=== PATIENT | male | born 1940 | race Caucasian/White ===

== ENCOUNTER 2024-09-11 07:07 | Observation (INO) ==
[2024-09-07 10:32] LABS: Appearance,Urine Clear (Clear); Bilirubin,Urine Negative (Negative); Color,Urine Yellow; Glucose,Urine (UA) Negative (Negative); Ketones,Urine Negative (Negative); Leukocyte Esterase,Urine Trace /uL (Negative); Nitrate,Urine Negative (Negative); PH,Urine 5.5 (5.0-9.0); Protein,Urine Negative (Negative); Urine Blood Negative ery/mcL (Negative); Urine Hyaline Cast 6 /lph (0-2); Urine RBC 0 /hpf (0-3); Urine Squamous Epithelial Cell 2 /hpf (0-4); Urine WBC 2 /hpf (0-4); Urobilinogen,Urine Normal
[2024-09-08 12:28] LABS: Basophils # (Auto) 0.05 K/mcL (0.00-0.30); Basophils % (Auto) 0.6 % (0.0-2.0); Eosinophils # (Auto) 0.15 K/mcL (0.00-0.70); Eosinophils % (Auto) 1.7 % (0.0-7.0); Hematocrit 45.4 % (40.1-51.0); Hemoglobin 14.4 g/dL (13.7-17.5); Lymphocytes # (Auto) 1.23 K/mcL (1.50-4.80); Lymphocytes % (Auto) 13.7 % (15.5-49.0); Mean Cell Volume 92.7 fL (80.0-100.0); Mean Corpuscular HGB Conc 31.7 g/dL (31.0-36.0); Monocytes # (Auto) 0.86 K/mcL (0.10-0.90); Monocytes % (Auto) 9.6 % (1.0-12.0); Neutrophils % (Auto) 74.2 % (38.0-78.0); Platelet Count 163 K/mcL (140-440)
[2024-09-08 12:37] LABS: Prothrombin Time 13.8 sec (11.9-14.5)
[2024-09-08 12:58] LABS: ALT/SGPT 12 U/L (<40); AST/SGOT 27 U/L (<40); Albumin 3.9 gm/dL (3.2-5.2); Albumin/Globulin Ratio 1.2 (1.0-2.3); Alkaline Phosphatase 123 U/L (39-117); Bilirubin,Total 0.6 mg/dL (0.1-1.0); Blood Urea Nitrogen 22 mg/dL (8-23); Calcium 9.2 mg/dL (8.6-10.4); Carbon Dioxide 25 mmol/L (22-30); Chloride 102 mmol/L (96-108); Globulin 3.3 gm/dL (2.2-3.7); Glomerular Filtration Rate 62; Glucose 161 mg/dL (70-105); Potassium 4.6 mmol/L (3.3-5.1); Sodium 140 mmol/L (133-145)
[2024-09-08 15:41] LABS: Estimated Average Glucose(eAG) 137 mg/dL; Hemoglobin A1C 6.4 % Hgb (4.0-6.0)
[2024-09-11] MEDS ORDERED: SUGAMMADEX SODIUM 200 MG/2 ML VIAL IV ONE (07:47)
[2024-09-11] MEDS ORDERED: fentaNYL 100 MCG/2 ML VIAL ONE (07:47)
[2024-09-11] MEDS ORDERED: PROPOFOL 200 MG/20 ML VIAL IV ONE (07:48)
[2024-09-11] MEDS ORDERED: ROCURONIUM 10 MG/ML ML IV ONE ×2 (07:48→09:40)
[2024-09-11] MEDS ORDERED: GLYCOPYRROLATE 0.2 MG/ML VIAL IV ONE (07:48)
[2024-09-11] MEDS ORDERED: TRANEXAMIC ACID 1,000 MG/10 ML VIAL ONE (07:48)
[2024-09-11] MEDS ORDERED: ONDANSETRON 4 MG/2 ML VIAL ONE (07:48)
[2024-09-11] MEDS ORDERED: DEXAMETHASONE 10 MG/ML VIAL ONE (07:48)
[2024-09-11] MEDS: PREGABALIN 75 MG CAPSULE PO SCH (07:50)
[2024-09-11] MEDS: oxyCODONE 10 MG TAB.ER.12H PO SCH (07:51)
[2024-09-11] MEDS: CELECOXIB 200 MG CAPSULE PO SCH (07:51)
[2024-09-11] MEDS ORDERED: MAGNESIUM SULFATE 2 GM/50 ML BAG IV ONE (07:53)
[2024-09-11] MEDS: ceFAZolin 3 GM in DEXTROSE 5% IN WATER 50 ML IV SCH (08:58)
[2024-09-11] MEDS ORDERED: MIDAZOLAM 2 MG/2 ML VIAL ONE (08:58)
[2024-09-11] MEDS ORDERED: PHENYLephrine 1 MG/10 ML SYRINGE (ANEST) ONE (09:31)
[2024-09-11] MEDS: FLUCONAZOLE 200 MG/100 ML BAG IV SCH (10:16)
[2024-09-11] MEDS: VANCOMYCIN 1 GM VIAL TOPICAL SCH (10:46)
[2024-09-11] MEDS ORDERED: fentaNYL 100 MCG/2 ML VIAL IV PRN (11:02)
[2024-09-11] MEDS ORDERED: IPRATROPIUM/ALBUTEROL 3 ML AMPUL.NEB NEB PRN (11:02)
[2024-09-11] MEDS ORDERED: ONDANSETRON 4 MG/2 ML VIAL IV PRN ×2 (11:02→11:05)
[2024-09-11] MEDS ORDERED: morphine 4 MG/ML VIAL IV PRN (11:05)
[2024-09-11] MEDS ORDERED: POLYETHYLENE GLYCOL 3350 17 GM PACKET PO PRN (11:05)
[2024-09-11] MEDS: ceFAZolin 1 GM VIAL IV SCH ×2 (11:15→16:12)
[2024-09-11] MEDS: METHOCARBAMOL 1,000 MG/10 ML VIAL IV PRN (12:00)
[2024-09-11] MEDS: TRANEXAMIC ACID 1,000 MG/10 ML VIAL IV SCH (12:00)
[2024-09-11] MEDS: 0.9 % SODIUM CHLORIDE 1,000 ML IV SCH (12:39)
[2024-09-11] MEDS: LACTATED RINGERS 1,000 ML IV SCH (12:44)
[2024-09-11] MEDS: 0.9 % SODIUM CHLORIDE 10 ML SYRINGE IV SCH (12:45)
[2024-09-11] MEDS: BENZOCAINE/MENTHOL 1 LOZENGE PO PRN (13:35)
[2024-09-11] MEDS: HYDROcodone/APAP 10/325MG TABLET PO PRN (13:35)
[2024-09-11] MEDS: METOPROLOL TARTRATE 50 MG TABLET PO SCH (15:02)
[2024-09-11] MEDS: METOPROLOL TARTRATE 25 MG TABLET ONE (15:05)
[2024-09-11] MEDS: ASPIRIN 81 MG TAB.CHEW PO SCH (21:49)
[2024-09-11] MEDS: cloNIDine HCL 0.1 MG TABLET PO SCH (21:49)
[2024-09-11] MEDS: DILTIAZEM 30 MG TABLET PO SCH (21:50)
[2024-09-11] MEDS: SENNOSIDES 1 TABLET PO SCH (21:50)
[2024-09-11] MEDS: ATORVASTATIN 20 MG TABLET PO SCH (21:50)
[2024-09-11] MEDS: DOCUSATE SODIUM 100 MG CAPSULE PO SCH (21:50)
[2024-09-12 06:56] LABS: Hematocrit 39.2 % (40.1-51.0)
[2024-09-12 06:57] LABS: Hemoglobin 12.6 g/dL (13.7-17.5)
[2024-09-12] MEDS: TAMSULOSIN 0.4 MG CAPSULE PO SCH (08:44)
[2024-09-12] MEDS: ALLOPURINOL 100 MG TABLET PO SCH (08:45)
[2024-09-12] MEDS: TORSEMIDE 20 MG TABLET PO SCH (08:45)
[2024-09-12] MEDS ORDERED: DOCUSATE SODIUM 100 MG CAPSULE PO SCH (09:00)
[2024-09-13 06:09] LABS: Hematocrit 37.3 % (40.1-51.0); Hemoglobin 11.9 g/dL (13.7-17.5)
[2024-09-13] MEDS: METHOCARBAMOL 750 MG TABLET PO PRN (11:17)
== END 2024-09-13 11:41 ==
LOC: MEDSUR 07:07 → SUR 07:07 → MEDSUR 12:27
PROVIDERS: ADMIT Orthopaedic Surgery Orthopaedic Surgery of the Spine; ATTEND Orthopaedic Surgery Orthopaedic Surgery of the Spine

== ENCOUNTER 2024-09-14 08:11 | Inpatient (IN) ==
[2024-09-14] MEDS ORDERED: IOPAMIDOL 100 ML BOTTLE IV ONE (08:12)
[2024-09-14 08:44] LABS: Basophils # (Auto) 0.01 K/mcL (0.00-0.30); Basophils % (Auto) 0.1 % (0.0-2.0); Eosinophils # (Auto) 0.01 K/mcL (0.00-0.70); Eosinophils % (Auto) 0.1 % (0.0-7.0); Hematocrit 41.8 % (40.1-51.0); Hemoglobin 13.6 g/dL (13.7-17.5); Lymphocytes # (Auto) 0.67 K/mcL (1.50-4.80); Mean Cell Volume 91.7 fL (80.0-100.0); Mean Corpuscular HGB Conc 32.5 g/dL (31.0-36.0); Mean Platelet Volume 12.2 fL (8.8-12.5); Monocytes # (Auto) 1.14 K/mcL (0.10-0.90); Monocytes % (Auto) 6.9 % (1.0-12.0); Neutrophils % (Auto) 88.3 % (38.0-78.0); Platelet Count 159 K/mcL (140-440); RBC 4.56 M/mcL (4.63-6.08); Red Cell Distribution Width 14.9 % (11.5-14.5); WBC 16.6 K/mcL (4.5-11.0)
[2024-09-14 09:05] LABS: ALT/SGPT 7 U/L (<40); AST/SGOT 18 U/L (<40); Albumin 3.9 gm/dL (3.2-5.2); Albumin/Globulin Ratio 1.2 (1.0-2.3); Alkaline Phosphatase 114 U/L (39-117); Bilirubin,Total 0.9 mg/dL (0.1-1.0); Blood Urea Nitrogen 50 mg/dL (8-23); Calcium 9.3 mg/dL (8.6-10.4); Carbon Dioxide 28 mmol/L (22-30); Chloride 96 mmol/L (96-108); Globulin 3.2 gm/dL (2.2-3.7); Glomerular Filtration Rate 43; Glucose 171 mg/dL (70-105); Potassium 3.9 mmol/L (3.3-5.1); Sodium 140 mmol/L (133-145)
[2024-09-14] MEDS ORDERED: POTASSIUM CHLORIDE 20 MEQ TABLET PO PRN ×2 (13:00)
[2024-09-14] MEDS ORDERED: METOCLOPRAMIDE 10 MG/2 ML VIAL IV PRN (13:00)
[2024-09-14] MEDS ORDERED: IPRATROPIUM/ALBUTEROL 3 ML AMPUL.NEB NEB PRN (13:00)
[2024-09-14] MEDS ORDERED: POTASSIUM CHLORIDE 40 MEQ in DEXTROSE 5% IN WATER 500 ML IV PRN (13:00)
[2024-09-14] MEDS ORDERED: hydrALAZINE 20 MG/ML VIAL IV PRN (13:00)
[2024-09-14] MEDS ORDERED: MAGNESIUM SULFATE 2 GM/50 ML BAG IV PRN (13:00)
[2024-09-14] MEDS ORDERED: ONDANSETRON 4 MG/2 ML VIAL IV PRN (13:00)
[2024-09-14] MEDS: METOPROLOL TARTRATE 5 MG/5 ML VIAL IV PRN (13:40)
[2024-09-14] MEDS: 0.9 % SODIUM CHLORIDE 10 ML SYRINGE IV SCH (13:41)
[2024-09-14] MEDS: METOCLOPRAMIDE 10 MG/2 ML VIAL IV SCH (17:52)
[2024-09-14] MEDS: METHYLNALTREXONE BROMIDE 12 MG/0.6 ML SYRINGE SQ SCH (18:55)
[2024-09-14] MEDS: HEPARIN 5,000 UNIT/ML VIAL SQ SCH (21:50)
[2024-09-15] MEDS: LABETALOL HCL 20 MG/4 ML VIAL IV PRN (00:27)
[2024-09-15 06:11] LABS: Basophils # (Auto) 0.02 K/mcL (0.00-0.30); Basophils % (Auto) 0.2 % (0.0-2.0); Eosinophils # (Auto) 0.09 K/mcL (0.00-0.70); Eosinophils % (Auto) 0.7 % (0.0-7.0); Hematocrit 37.3 % (40.1-51.0); Lymphocytes # (Auto) 1.12 K/mcL (1.50-4.80); Lymphocytes % (Auto) 8.6 % (15.5-49.0); Mean Cell Volume 92.1 fL (80.0-100.0); Mean Corpuscular HGB Conc 32.2 g/dL (31.0-36.0); Mean Platelet Volume 12.2 fL (8.8-12.5); Monocytes # (Auto) 1.38 K/mcL (0.10-0.90); Monocytes % (Auto) 10.6 % (1.0-12.0); Neutrophils % (Auto) 79.4 % (38.0-78.0); Platelet Count 144 K/mcL (140-440); RBC 4.05 M/mcL (4.63-6.08); Red Cell Distribution Width 14.9 % (11.5-14.5)
[2024-09-15 06:32] LABS: ALT/SGPT 6 U/L (<40); AST/SGOT 16 U/L (<40); Albumin 3.3 gm/dL (3.2-5.2); Albumin/Globulin Ratio 1.1 (1.0-2.3); Alkaline Phosphatase 97 U/L (39-117); Bilirubin,Direct 0.5 mg/dL (<0.3); Blood Urea Nitrogen 48 mg/dL (8-23); Calcium 9.1 mg/dL (8.6-10.4); Carbon Dioxide 32 mmol/L (22-30); Chloride 100 mmol/L (96-108); Globulin 2.9 gm/dL (2.2-3.7); Glomerular Filtration Rate 51; Glucose 126 mg/dL (70-105); Lactate Dehydrogenase 229 U/L (135-225); Phosphorous 3.9 mg/dL (2.5-4.5); Potassium 3.8 mmol/L (3.3-5.1); Sodium 143 mmol/L (133-145); Triglycerides 134 mg/dL (<150); Uric Acid 9.5 mg/dL (2.5-8.0)
[2024-09-15] MEDS: FUROSEMIDE 40 MG/4 ML VIAL IV SCH (08:59)
[2024-09-15] MEDS: POTASSIUM CHLORIDE 10 MEQ/100 ML BAG IV SCH (09:05)
[2024-09-15] MEDS: METOPROLOL TARTRATE 5 MG/5 ML VIAL IV SCH ×2 (09:21→11:10)
[2024-09-15] MEDS ORDERED: DIATRIZOATE MEGLU/DIATRIZO SOD 120ML BOTTLE PO ONE (18:30)
[2024-09-15] MEDS: POLYETHYLENE GLYCOL 3350 17 GM PACKET PO SCH (22:00)
[2024-09-15] MEDS: ENOXAPARIN 120 MG/0.8 ML SYRINGE SQ SCH (22:01)
[2024-09-16 09:06] LABS: Basophils # (Auto) 0.03 K/mcL (0.00-0.30); Basophils % (Auto) 0.3 % (0.0-2.0); Eosinophils % (Auto) 2.5 % (0.0-7.0); Hematocrit 37.9 % (40.1-51.0); Lymphocytes # (Auto) 1.15 K/mcL (1.50-4.80); Lymphocytes % (Auto) 9.7 % (15.5-49.0); Mean Cell Volume 93.1 fL (80.0-100.0); Mean Corpuscular HGB Conc 31.7 g/dL (31.0-36.0); Mean Platelet Volume 11.8 fL (8.8-12.5); Monocytes # (Auto) 1.21 K/mcL (0.10-0.90); Monocytes % (Auto) 10.2 % (1.0-12.0); Neutrophils % (Auto) 76.5 % (38.0-78.0); Platelet Count 154 K/mcL (140-440); RBC 4.07 M/mcL (4.63-6.08); Red Cell Distribution Width 14.9 % (11.5-14.5); WBC 11.9 K/mcL (4.5-11.0)
[2024-09-16 09:26] LABS: ALT/SGPT 9 U/L (<40); AST/SGOT 19 U/L (<40); Albumin 3.3 gm/dL (3.2-5.2); Albumin/Globulin Ratio 1.1 (1.0-2.3); Alkaline Phosphatase 98 U/L (39-117); Bilirubin,Direct 0.5 mg/dL (<0.3); Bilirubin,Total 1.1 mg/dL (0.1-1.0); Blood Urea Nitrogen 35 mg/dL (8-23); Calcium 8.7 mg/dL (8.6-10.4); Carbon Dioxide 32 mmol/L (22-30); Chloride 99 mmol/L (96-108); Globulin 2.9 gm/dL (2.2-3.7); Glomerular Filtration Rate 62; Glucose 157 mg/dL (70-105); Lactate Dehydrogenase 245 U/L (135-225); Phosphorous 2.5 mg/dL (2.5-4.5); Sodium 142 mmol/L (133-145); Triglycerides 121 mg/dL (<150); Uric Acid 9.8 mg/dL (2.5-8.0)
[2024-09-16] MEDS: METOPROLOL TARTRATE 5 MG/5 ML VIAL IV SCH (11:56)
[2024-09-16] MEDS: TORSEMIDE 20 MG TABLET PO SCH (14:13)
[2024-09-16] MEDS: POTASSIUM CHLORIDE 20 MEQ TABLET PO SCH (14:14)
[2024-09-16] MEDS: POLYETHYLENE GLYCOL 3350 17 GM PACKET PO SCH (17:48)
[2024-09-16] MEDS: METOPROLOL TARTRATE 50 MG TABLET PO SCH (20:46)
[2024-09-16] MEDS: MELATONIN 3 MG TABLET PO PRN (20:47)
[2024-09-16] MEDS: DILTIAZEM 30 MG TABLET PO SCH (20:47)
[2024-09-16] MEDS: ACETAMINOPHEN 325 MG TABLET PO PRN (23:53)
[2024-09-17 06:11] LABS: Basophils # (Auto) 0.03 K/mcL (0.00-0.30); Basophils % (Auto) 0.3 % (0.0-2.0); Eosinophils # (Auto) 0.36 K/mcL (0.00-0.70); Eosinophils % (Auto) 3.8 % (0.0-7.0); Hemoglobin 11.3 g/dL (13.7-17.5); Lymphocytes # (Auto) 1.36 K/mcL (1.50-4.80); Lymphocytes % (Auto) 14.5 % (15.5-49.0); Mean Cell Volume 92.6 fL (80.0-100.0); Mean Corpuscular HGB Conc 32.3 g/dL (31.0-36.0); Mean Platelet Volume 11.9 fL (8.8-12.5); Monocytes # (Auto) 1.16 K/mcL (0.10-0.90); Monocytes % (Auto) 12.3 % (1.0-12.0); Neutrophils % (Auto) 67.8 % (38.0-78.0); Platelet Count 143 K/mcL (140-440); RBC 3.78 M/mcL (4.63-6.08); Red Cell Distribution Width 14.9 % (11.5-14.5); WBC 9.4 K/mcL (4.5-11.0)
[2024-09-17 06:39] LABS: ALT/SGPT 10 U/L (<40); AST/SGOT 18 U/L (<40); Albumin 3.1 gm/dL (3.2-5.2); Albumin/Globulin Ratio 1.2 (1.0-2.3); Alkaline Phosphatase 91 U/L (39-117); Bilirubin,Direct 0.5 mg/dL (<0.3); Bilirubin,Total 1.1 mg/dL (0.1-1.0); Blood Urea Nitrogen 30 mg/dL (8-23); Calcium 8.4 mg/dL (8.6-10.4); Carbon Dioxide 33 mmol/L (22-30); Chloride 99 mmol/L (96-108); Globulin 2.6 gm/dL (2.2-3.7); Glomerular Filtration Rate 56; Glucose 109 mg/dL (70-105); Lactate Dehydrogenase 245 U/L (135-225); Phosphorous 3.4 mg/dL (2.5-4.5); Potassium 3.2 mmol/L (3.3-5.1); Sodium 142 mmol/L (133-145); Triglycerides 125 mg/dL (<150); Uric Acid 9.6 mg/dL (2.5-8.0)
[2024-09-17] MEDS: POLYETHYLENE GLYCOL 3350 17 GM PACKET PO SCH (10:00)
[2024-09-17] MEDS: TAMSULOSIN 0.4 MG CAPSULE PO SCH (10:00)
[2024-09-17] MEDS: RIVAROXABAN 20 MG TABLET PO SCH (10:14)
[2024-09-17] MEDS: POTASSIUM CHLORIDE 20 MEQ TABLET PO SCH (10:14)
[2024-09-17] MEDS: valACYclovir 500 MG TABLET PO SCH ×2 (12:26→15:53)
[2024-09-17] MEDS: POTASSIUM CHLORIDE 20 MEQ in DEXTROSE 5% IN WATER 250 ML IV ONE (14:04)
[2024-09-17] MEDS: CYCLOBENZAPRINE 10 MG TABLET PO PRN (15:53)
[2024-09-18 06:18] LABS: Basophils # (Auto) 0.03 K/mcL (0.00-0.30); Basophils % (Auto) 0.3 % (0.0-2.0); Eosinophils # (Auto) 0.36 K/mcL (0.00-0.70); Eosinophils % (Auto) 3.7 % (0.0-7.0); Hematocrit 34.5 % (40.1-51.0); Hemoglobin 11.1 g/dL (13.7-17.5); Lymphocytes % (Auto) 13.4 % (15.5-49.0); Mean Corpuscular HGB Conc 32.2 g/dL (31.0-36.0); Mean Platelet Volume 11.9 fL (8.8-12.5); Monocytes # (Auto) 1.18 K/mcL (0.10-0.90); Monocytes % (Auto) 12.1 % (1.0-12.0); Neutrophils % (Auto) 68.8 % (38.0-78.0); Platelet Count 152 K/mcL (140-440); RBC 3.75 M/mcL (4.63-6.08); Red Cell Distribution Width 14.3 % (11.5-14.5); WBC 9.7 K/mcL (4.5-11.0)
[2024-09-18 07:18] LABS: ALT/SGPT 13 U/L (<40); AST/SGOT 25 U/L (<40); Albumin 3.1 gm/dL (3.2-5.2); Albumin/Globulin Ratio 1.3 (1.0-2.3); Alkaline Phosphatase 90 U/L (39-117); Bilirubin,Direct 0.4 mg/dL (<0.3); Bilirubin,Total 0.9 mg/dL (0.1-1.0); Blood Urea Nitrogen 27 mg/dL (8-23); Calcium 8.2 mg/dL (8.6-10.4); Carbon Dioxide 32 mmol/L (22-30); Chloride 99 mmol/L (96-108); Globulin 2.4 gm/dL (2.2-3.7); Glomerular Filtration Rate 56; Glucose 130 mg/dL (70-105); Lactate Dehydrogenase 264 U/L (135-225); Phosphorous 3.1 mg/dL (2.5-4.5); Potassium 3.5 mmol/L (3.3-5.1); Sodium 141 mmol/L (133-145); Triglycerides 119 mg/dL (<150); Uric Acid 9.2 mg/dL (2.5-8.0)
[2024-09-18] MEDS ORDERED: RIVAROXABAN 20 MG TABLET PO SCH (09:00)
[2024-09-18] MEDS: valACYclovir 500 MG TABLET PO SCH (09:18)
[2024-09-19] MEDS: GABAPENTIN 100 MG CAPSULE PO SCH (01:05)
[2024-09-19] MEDS: ACETAMINOPHEN 325 MG TABLET PO PRN (01:06)
[2024-09-19] MEDS: traMADol 50 MG TABLET PO PRN (01:06)
[2024-09-19] MEDS: traMADol 50 MG TABLET PO ONE (01:52)
[2024-09-19] MEDS: ACETAMINOPHEN 325 MG TABLET PO ONE (01:52)
[2024-09-19] MEDS: GABAPENTIN 100 MG CAPSULE PO ONE (01:52)
[2024-09-19 07:02] LABS: ALT/SGPT 24 U/L (<40); AST/SGOT 33 U/L (<40); Albumin 3.2 gm/dL (3.2-5.2); Albumin/Globulin Ratio 1.3 (1.0-2.3); Alkaline Phosphatase 94 U/L (39-117); Bilirubin,Direct 0.3 mg/dL (<0.3); Bilirubin,Total 0.9 mg/dL (0.1-1.0); Blood Urea Nitrogen 28 mg/dL (8-23); Calcium 8.3 mg/dL (8.6-10.4); Carbon Dioxide 31 mmol/L (22-30); Chloride 95 mmol/L (96-108); Globulin 2.5 gm/dL (2.2-3.7); Glomerular Filtration Rate 56; Glucose 127 mg/dL (70-105); Lactate Dehydrogenase 260 U/L (135-225); Phosphorous 3.4 mg/dL (2.5-4.5); Potassium 3.3 mmol/L (3.3-5.1); Sodium 138 mmol/L (133-145); Triglycerides 124 mg/dL (<150); Uric Acid 9.1 mg/dL (2.5-8.0)
[2024-09-19] MEDS: POTASSIUM CHLORIDE 20 MEQ TABLET PO SCH (09:06)
[2024-09-19] MEDS: METOLAZONE 2.5 MG TABLET PO SCH (10:15)
[2024-09-19] MEDS: predniSONE 10 MG TABLET PO SCH (21:32)
[2024-09-20 09:19] LABS: Blood Urea Nitrogen 29 mg/dL (8-23); Calcium 8.7 mg/dL (8.6-10.4); Carbon Dioxide 32 mmol/L (22-30); Chloride 94 mmol/L (96-108); Glomerular Filtration Rate 51; Glucose 136 mg/dL (70-105); Potassium 3.5 mmol/L (3.3-5.1); Sodium 139 mmol/L (133-145)
== END 2024-09-20 11:15 | DRG 389 ==
LOC: ED 08:11 → MEDSUR 12:36
PROVIDERS: ADMIT Internal Medicine; ATTEND Internal Medicine